=== PATIENT | female | born 1980 | race Caucasian/White ===

== ENCOUNTER 2019-07-30 20:25 | Emergency (ER) | payer BC, OTHER ==
[2019-07-30 20:29] VITALS: RESP 18; TEMP 97.7
[2019-07-30] MEDS ORDERED: SODIUM CHLORIDE 0.9% 500 ML 500 ML IV STA (20:52)
[2019-07-30] MEDS ORDERED: ENALAPRILAT 1.25 MG/ML 1 ML VIAL IVP STA (20:53)
[2019-07-30 21:15] VITALS: PULSE 70
[2019-07-30] MEDS ORDERED: MORPHINE SULFATE 4 MG/ML SYRINGE IVP STA (21:16)
[2019-07-30] MEDS ORDERED: diphenhydrAMINE 50 MG/ML 1 ML VIAL IVP STA (21:16)
[2019-07-30] MEDS ORDERED: METOCLOPRAMIDE 5 MG/ML 2 ML VIAL IVP STA (21:16)
[2019-07-30 21:17] LABS: Basophils # (A) 0.1 k/uL (0-0.2); Basophils % (A) 1 %; Eosinophils # (A) 0.6 k/uL (0-0.7); Eosinophils % (A) 6 %; HCT 42.3 % (34.0-46.0); HGB 14.9 gm/dL (11.4-16.0); Lymphocytes # (A) 2.8 k/uL (1.0-4.8); Lymphocytes % (A) 29 %; MCH 34.3 pg (25.0-35.0); MCHC 35.2 g/dL (31.0-37.0); MCV 97.5 fL (80.0-100.0); Mean Platelet Volume 6.1; Monocytes # (A) 0.4 k/uL (0-1.0); Monocytes % (A) 4 %; Neutrophils # (A) 5.7 k/uL (1.3-7.7); Neutrophils % (A) 58 %; Platelet Count 290 k/uL (150-450); RBC 4.34 m/uL (3.80-5.40); WBC 9.7 k/uL (3.8-10.6)
[2019-07-30 21:21] LABS: Partial Thromboplastin Time 26.3 sec (22.0-30.0); Prothrombin Time 10.4 sec (9.0-12.0)
--- NOTE | 2019-07-30 21:22 | CT ---
EXAMINATION TYPE: CT brain wo con DATE OF EXAM: 07/30/2019 COMPARISON: None HISTORY: headache, htn CT DLP: 1121.4 mGycm. Automated Exposure Control for Dose Reduction was Utilized. TECHNIQUE: CT scan of the head is performed without contrast. FINDINGS: Ventricles have normal size. There is no mass effect nor midline shift. There is no sign of intracranial hemorrhage. Calvarium is intact. There is no evidence of cerebral edema. IMPRESSION: Normal head CT scan.
[2019-07-30 21:23] LABS: ALT 26 U/L (9-52); AST 28 U/L (14-36); African American GFR (CKD) >90 (>60 ml/min/1.73 sqM); Albumin 4.3 g/dL (3.5-5.0); Alkaline Phosphatase 72 U/L (38-126); Anion Gap 4 mmol/L; Blood Urea Nitrogen 10 mg/dL (7-17); Calcium 9.6 mg/dL (8.4-10.2); Carbon Dioxide 28 mmol/L (22-30); Chloride 106 mmol/L (98-107); Glucose 102 mg/dL (74-99); Non-African American GFR(CKD) >90 (>60 ml/min/1.73 sqM); Potassium 4.3 mmol/L (3.5-5.1); Sodium 138 mmol/L (137-145); Total Bilirubin 0.4 mg/dL (0.2-1.3); Total Protein 7.3 g/dL (6.3-8.2)
--- NOTE | 2019-07-30 21:24 | XR ---
EXAMINATION TYPE: XR chest 2V DATE OF EXAM: 07/30/2019 COMPARISON: 11/13/2012 HISTORY: Chest pain TECHNIQUE: Frontal and lateral views of the chest are obtained. FINDINGS: Heart and mediastinum are normal. Lungs are clear. Costophrenic angles are clear. Bony tho rax is intact. IMPRESSION: Normal chest. There is clearing of the minimal pulmonary infiltrates compared to last ex am.
--- NOTE | 2019-07-30 22:03 | ED ---
General Adult HPI - General Chief complaint: Recheck/Abnormal Lab/Rx Stated complaint: Hypertensive Time Seen by Provider: 07/30/19 20:31 Source: patient Mode of arrival: wheelchair Limitations: no limitations - History of Present Illness Initial comments: 39-year-old female without any significant past medical history presents to the emergency dept for a chief complaint of headache 4 days. Patient states that this came on gradually. States headache has been on and off for the past 4 days. States it is across her forehead. States because of this headache she checked her blood pressure at home it was 178 systolic. Patient states that she took her mother's blood pressure medication which was 25 mg of metoprolol. States the Reason she checked her blood pressure was because of this headache. Patient has no other complaints at this time including shortness of breath, chest pain, abdominal pain, nausea or vomiting, or visual changes. - Related Data Allergies Allergy/AdvReac Type Severity Reaction Status Date / Time No Known Allergies Allergy Verified 07/30/19 20:29 Review of Systems ROS Statement: Those systems with pertinent positive or pertinent negative responses have been documented in the HPI. ROS Other: All systems not noted in ROS Statement are negative. Past Medical History Past Medical History: No Reported History History of Any Multi-Drug Resistant Organisms: None Reported Past Surgical History: Appendectomy Past Psychological History: No Psychological Hx Reported Smoking Status: Current every day smoker Past Alcohol Use History: Daily Past Drug Use History: Marijuana General Exam Limitations: no limitations General appearance: alert, in no apparent distress, anxious Head exam: Present: atraumatic, normocephalic, normal inspection Eye exam: Present: normal appearance, PERRL, EOMI. Absent: scleral icterus, conjunctival injection, periorbital swelling ENT exam: Present: normal exam, mucous membranes moist Neck exam: Present: normal inspection, full ROM. Absent: tenderness, meningismus, lymphadenopathy Respiratory exam: Present: normal lung sounds bilaterally. Absent: respiratory distress, wheezes, rales, rhonchi, stridor Cardiovascular Exam: Present: regular rate, normal rhythm, normal heart sounds. Absent: systolic murmur, diastolic murmur, rubs, gallop, clicks GI/Abdominal exam: Present: soft, normal bowel sounds. Absent: distended, tenderness, guarding, rebound, rigid Neurological exam: Present: alert, oriented X3, normal gait, other (GCS 15) Course Vital Signs 07/30/19 07/30/19 07/30/19 20:26 20:56 21:13 Temperature 97.7 F Pulse Rate 78 70 Pulse Rate [ 77 Pulse Oximetery ] Respiratory 18 18 Rate Blood Pressure 205/97 164/94 O2 Sat by Pulse 99 96 Oximetry EKG Findings - EKG Comments: EKG Findings:: Normal sinus rhythm, ventricular rate 68, CO interval 122, QTc 45 9, no evidence of ST elevation or depression, reviewed by Dr Delaney Medical Decision Making - Medical Decision Making patient initially had a blood pressure of 205/97. Patient was very anxious and tearful. Blood pressure did actually decreased without any antihypertensives to 118/72. However patient was noted to have taken 25 mg of metoprolol. This was her mother's prescription. Lab work was obtained and was all unremarkable. CT brain showed a negative scan. Chest x-ray was also unremarkable. There was clearing of pulmonary infiltrates noted. On reevaluation patient's pain has decreased from 6 to a 1. Patient is feeling much better. As headache as a cause for had this may be tension related. I recommended patient keep a log of her blood pressure and follow up with her primary care provider. I recommended checking blood pressure once per day. If she has any worsening symptoms or headache is recurrent she can return to the emergency department which was discussed with her. Patient wishes to follow-up with Dr. Bragg. - Lab Data Result diagrams: 07/30/19 21:00 07/30/19 21:00 Lab Results 07/30/19 07/30/19 07/30/19 Range/Units 21:00 21:00 21:00 WBC 9.7 (3.8-10.6) k/uL RBC 4.34 (3.80-5.40) m/uL Hgb 14.9 (11.4-16.0) gm/dL Hct 42.3 (34.0-46.0) % MCV 97.5 (80.0-100.0) fL MCH 34.3 (25.0-35.0) pg MCHC 35.2 (31.0-37.0) g/dL RDW 12.0 (11.5-15.5) % Plt Count 290 (150-450) k/uL Neutrophils % 58 % Lymphocytes % 29 % Monocytes % 4 % Eosinophils % 6 % Basophils % 1 % Neutrophils # 5.7 (1.3-7.7) k/uL Lymphocytes # 2.8 (1.0-4.8) k/uL Monocytes # 0.4 (0-1.0) k/uL Eosinophils # 0.6 (0-0.7) k/uL Basophils # 0.1 (0-0.2) k/uL PT 10.4 (9.0-12.0) sec INR 1.0 (<1.2) APTT 26.3 (22.0-30.0) sec Sodium 138 (137-145) mmol/L Potassium 4.3 (3.5-5.1) mmol/L Chloride 106 (98-107) mmol/L Carbon Dioxide 28 (22-30) mmol/L Anion Gap 4 mmol/L BUN 10 (7-17) mg/dL Creatinine 0.62 (0.52-1.04) mg/dL Est GFR (CKD-EPI)AfAm >90 (>60 ml/min/1.73 sqM) Est GFR (CKD-EPI)NonAf >90 (>60 ml/min/1.73 sqM) Glucose 102 H (74-99) mg/dL Calcium 9.6 (8.4-10.2) mg/dL Magnesium 2.0 (1.6-2.3) mg/dL Total Bilirubin 0.4 (0.2-1.3) mg/dL AST 28 (14-36) U/L ALT 26 (9-52) U/L Alkaline Phosphatase 72 (38-126) U/L Troponin I (0.000-0.034) ng/mL Total Protein 7.3 (6.3-8.2) g/dL Albumin 4.3 (3.5-5.0) g/dL 07/30/19 Range/Units 21:00 WBC (3.8-10.6) k/uL RBC (3.80-5.40) m/uL Hgb (11.4-16.0) gm/dL Hct (34.0-46.0) % MCV (80.0-100.0) fL MCH (25.0-35.0) pg MCHC (31.0-37.0) g/dL RDW (11.5-15.5) % Plt Count (150-450) k/uL Neutrophils % % Lymphocytes % % Monocytes % % Eosinophils % % Basophils % % Neutrophils # (1.3-7.7) k/uL Lymphocytes # (1.0-4.8) k/uL Monocytes # (0-1.0) k/uL Eosinophils # (0-0.7) k/uL Basophils # (0-0.2) k/uL PT (9.0-12.0) sec INR (<1.2) APTT (22.0-30.0) sec Sodium (137-145) mmol/L Potassium (3.5-5.1) mmol/L Chloride (98-107) mmol/L Carbon Dioxide (22-30) mmol/L Anion Gap mmol/L BUN (7-17) mg/dL Creatinine (0.52-1.04) mg/dL Est GFR (CKD-EPI)AfAm (>60 ml/min/1.73 sqM) Est GFR (CKD-EPI)NonAf (>60 ml/min/1.73 sqM) Glucose (74-99) mg/dL Calcium (8.4-10.2) mg/dL Magnesium (1.6-2.3) mg/dL Total Bilirubin (0.2-1.3) mg/dL AST (14-36) U/L ALT (9-52) U/L Alkaline Phosphatase (38-126) U/L Troponin I <0.012 (0.000-0.034) ng/mL Total Protein (6.3-8.2) g/dL Albumin (3.5-5.0) g/dL Disposition Clinical Impression: Headache, Hypertension Disposition: HOME SELF-CARE Condition: Good Instructions (If sedation given, give patient instructions): Hypertension (ED), Acute Headache (ED) Additional Instructions: Please follow up with primary care in 1-2 days. Remember to keep a blood pressure log by checking her blood pressure at the same time once daily and recording this. If you have worsening symptoms or worsening headache return to the emergency department. Is patient prescribed a controlled substance at d/c from ED?: No Referrals: Dom Bragg MD [STAFF PHYSICIAN] - 1-2 days Time of Disposition: 22:18
[2019-07-30 22:20] VITALS: BP 118/74
[2019-07-30 22:32] LABS: Appearance,Urine Clear (Clear); Bilirubin,Urine Negative (Negative); Blood,Urine Negative (Negative); Color,Urine Yellow; Glucose,Urine (UA) Negative (Negative); Ketones,Urine Negative (Negative); Leukocyte Esterase,Urine Negative (Negative); Nitrite,Urine Negative (Negative); Protein,Urine Negative (Negative); Specific Gravity,Urine 1.009 (1.001-1.035); Urobilinogen,Urine <2.0 mg/dL (<2.0)
== END 2019-07-30 22:41 | disposition home or self-care (01) ==
LOC: EC 20:25
DX: I10 Essential (primary) hypertension (principal); R51 Headache; R91.8 Other nonspecific abnormal finding of lung field; R45.83 Excessive crying of child, adolescent or adult; F17.200 Nicotine dependence, unspecified, uncomplicated; Z53.8 Procedure and treatment not carried out for other reasons
CPT/HCPCS: 36415; 93005; 80053; 83735; 84484; 85025; 85610; 85730; 81003; 71046; 70450; 99284; 96374; 96375 ×2; 96361; J2270; J1200; J2765

== ENCOUNTER 2019-10-15 12:13 | Observation (INO) | payer BC ==
[2019-10-15] MEDS ORDERED: IPRATROPIUM-ALBUTEROL 3 ML NEB INHALATION STA ×2 (12:21→15:32)
[2019-10-15] MEDS ORDERED: SODIUM CHLORIDE 0.9% 500 ML 500 ML IV STA (13:03)
[2019-10-15] MEDS ORDERED: KETOROLAC 30 MG/ML 1 ML VIAL IVP STA (13:03)
[2019-10-15] MEDS ORDERED: methylPREDNISolone SOD SUCCI 125 MG/2 ML VIAL IV STA (13:03)
--- NOTE | 2019-10-15 13:03 | ED ---
SOB HPI - General Chief Complaint: Shortness of Breath Stated Complaint: Low back pain Time Seen by Provider: 10/15/19 12:20 Source: patient Mode of arrival: wheelchair Limitations: no limitations - History of Present Illness Initial Comments: Patient is a 39-year-old female presenting to emergency Department with complaints of shortness of breath and fever for the last 2 days. Patient states she has a history of chronic bronchitis and when she does get sick with upper respiratory type symptoms usually hits her very hard. Patient states she's also been taking Motrin for her fever. She has not had any medication today. She is also complaining of right sided flank pain that has been intermittent for a few years now. Patient states it is hurting her a lot today. Patient denies history of kidney stones. Patient states she has been having this pain on and off since she had her appendix out. She admits to being an every day smoker as well as marijuana smoker. She denies history of PEs, no calf pain, no recent travel. Patient is not on control. Arrival to the ER, patient is febrile 100.2, pulse is 104, respiratory 30, 91% on room air. - Related Data Home Medications Medication Instructions Recorded Confirmed Cinnamon Bark [Cinnamon] 500 mg PO DAILY 10/15/19 10/15/19 Ibuprofen [Motrin Ib] 400 mg PO Q6H PRN 10/15/19 10/15/19 Lisinopril [Zestril] 5 mg PO DAILY 10/15/19 10/15/19 Red Yeast Rice 600 mg PO DAILY 10/15/19 10/15/19 guaiFENesin [Mucinex] 600 mg PO Q12H PRN 10/15/19 10/15/19 Allergies Allergy/AdvReac Type Severity Reaction Status Date / Time No Known Allergies Allergy Verified 10/15/19 17:29 Review of Systems ROS Statement: Those systems with pertinent positive or pertinent negative responses have been documented in the HPI. ROS Other: All systems not noted in ROS Statement are negative. Past Medical History Past Medical History: No Reported History Additional Past Medical History / Comment(s): bronchitis, chronic back pain History of Any Multi-Drug Resistant Organisms: None Reported Past Surgical History: Appendectomy Past Psychological History: No Psychological Hx Reported Smoking Status: Current every day smoker Past Alcohol Use History: Daily Past Drug Use History: Marijuana - Past Family History Mother Additional Family Medical History / Comment(s): Passed at 31 from sepsis after Father Additional Family Medical History / Comment(s): Hypotension General Exam - General Exam Comments Initial Comments: GENERAL: Patient sitting on side of bed, taking rapid shallow breaths. Patient is talking, conversating. HEAD: Atraumatic, normocephalic. EYES: Pupils equal round and reactive to light, extraocular movements intact, sclera anicteric, conjunctiva are normal. ENT: TMs normal, nares patent, oropharynx clear without exudates. Moist mucous me mbranes. NECK: Normal range of motion, supple without lymphadenopathy or JVD. LUNGS: Scattered wheezes throughout, more pronounced in the left side. Rapid breathing. HEART: Tachycardia rate and rhythm without murmurs, rubs or gallops. ABDOMEN: Soft, nontender, normoactive bowel sounds. No guarding, no rebound. No masses appreciated. Right flank pain. : Deferred EXTREMITIES: Normal range of motion, no pitting or edema. No clubbing or cyanosis. NEUROLOGICAL: Normal speech, normal gait. PSYCH: Normal mood, normal affect. SKIN: Warm, Dry, normal turgor, no rashes or lesions noted. Limitations: no limitations Course Vital Signs 10/15/19 10/15/19 10/15/19 12:14 12:36 12:45 Temperature 100.2 F H Pulse Rate 104 H 92 92 Respiratory 30 H Rate Blood Pressure 155/87 O2 Sat by Pulse 91 L Oximetry 10/15/19 10/15/19 10/15/19 12:53 14:00 14:45 Temperature 99.1 F 97.8 F Pulse Rate 115 H 92 Respiratory 28 H 24 Rate Blood Pressure 148/92 139/82 146/90 O2 Sat by Pulse 95 96 95 Oximetry 10/15/19 10/15/19 10/15/19 15:31 16:23 16:32 Temperature Pulse Rate 88 83 86 Respiratory 24 Rate Blood Pressure 132/85 O2 Sat by Pulse 90 L Oximetry 10/15/19 17:20 Temperature Pulse Rate 92 Respiratory 20 Rate Blood Pressure 130/78 O2 Sat by Pulse 94 L Oximetry Medical Decision Making - Medical Decision Making She is a 39-year-old female presenting with shortness of breath, fever for 2 days. Patient has history of chronic bronchitis. She has an every day to gram her on a smoker. She has no history of PEs, no PE risk factors. Patient is febrile and tachycardia on arrival, shortness of breath. Lab work shows no acute abnormalities. Patient is influenza positive. Chest x-ray shows chronic parenchymal changes with perihilar edema and infiltrates present. Patient was given fluids, steroids and to do her nebs. She continues to have low oxygen saturation dropping to 90-89% on room air. She is stable at 95% on 2 L. She does not usually require oxygen at home. Renal ultrasound was obtained due to significant right flank pain. Shows no acute abnormalities. Patient will be admitted for influenza, pneumonia, and low oxygen saturation. She is in agreement with this complaint of care. We will continue with DuoNeb times as needed as well as antibiotics for pneumonia. Case is discussed with Dr. Vang who agrees this plan of care. Dr. Rodas is accepting. - Lab Data Result diagrams: 10/15/19 12:46 10/15/19 12:46 Lab Results 10/15/19 10/15/19 10/15/19 Range/Units 12:46 12:46 12:46 WBC 10.6 (3.8-10.6) k/uL RBC 4.87 (3.80-5.40) m/uL Hgb 16.0 (11.4-16.0) gm/dL Hct 46.9 H (34.0-46.0) % MCV 96.3 (80.0-100.0) fL MCH 32.8 (25.0-35.0) pg MCHC 34.1 (31.0-37.0) g/dL RDW 11.9 (11.5-15.5) % Plt Count 241 (150-450) k/uL Neutrophils % 90 % Lymphocytes % 3 % Monocytes % 3 % Eosinophils % 1 % Basophils % 3 % Neutrophils # 9.5 H (1.3-7.7) k/uL Lymphocytes # 0.3 L (1.0-4.8) k/uL Monocytes # 0.3 (0-1.0) k/uL Eosinophils # 0.1 (0-0.7) k/uL Basophils # 0.3 H (0-0.2) k/uL Sodium (137-145) mmol/L Potassium (3.5-5.1) mmol/L Chloride (98-107) mmol/L Carbon Dioxide (22-30) mmol/L Anion Gap mmol/L BUN (7-17) mg/dL Creatinine (0.52-1.04) mg/dL Est GFR (CKD-EPI)AfAm (>60 ml/min/1.73 sqM) Est GFR (CKD-EPI)NonAf (>60 ml/min/1.73 sqM) Glucose (74-99) mg/dL Calcium (8.4-10.2) mg/dL Total Bilirubin (0.2-1.3) mg/dL AST (14-36) U/L ALT (4-34) U/L Alkaline Phosphatase (38-126) U/L Total Protein (6.3-8.2) g/dL Albumin (3.5-5.0) g/dL Urine Color Yellow Urine Appearance Cloudy H (Clear) Urine pH 6.0 (5.0-8.0) Ur Specific [place] 1.024 (1.001-1.035) Urine Protein 2+ H (Negative) Urine Glucose (UA) Negative (Negative) Urine Ketones 1+ H (Negative) Urine Blood Moderate H (Negative) Urine Nitrite Negative (Negative) Urine Bilirubin Negative (Negative) Urine Urobilinogen <2.0 (<2.0) mg/dL Ur Leukocyte Esterase Negative (Negative) Urine RBC 11 H (0-5) /hpf Urine WBC 6 H (0-5) /hpf Ur Squamous Epith Cells 6 H (0-4) /hpf Amorphous Sediment Few H (None) /hpf Urine Mucus Few H (None) /hpf Urine HCG, Qual Not Detected (Not Detectd) Influenza Type A RNA (Not Detectd) Influenza Type B (PCR) (Not Detectd) 10/15/19 10/15/19 Range/Units 12:46 12:46 WBC (3.8-10.6) k/uL RBC (3.80-5.40) m/uL Hgb (11.4-16.0) gm/dL Hct (34.0-46.0) % MCV (80.0-100.0) fL MCH (25.0-35.0) pg MCHC (31.0-37.0) g/dL RDW (11.5-15.5) % Plt Count (150-450) k/uL Neutrophils % % Lymphocytes % % Monocytes % % Eosinophils % % Basophils % % Neutrophils # (1.3-7.7) k/uL Lymphocytes # (1.0-4.8) k/uL Monocytes # (0-1.0) k/uL Eosinophils # (0-0.7) k/uL Basophils # (0-0.2) k/uL Sodium 135 L (137-145) mmol/L Potassium 3.8 (3.5-5.1) mmol/L Chloride 100 (98-107) mmol/L Carbon Dioxide 23 (22-30) mmol/L Anion Gap 12 mmol/L BUN 5 L (7-17) mg/dL Creatinine 0.49 L (0.52-1.04) mg/dL Est GFR (CKD-EPI)AfAm >90 (>60 ml/min/1.73 sqM) Est GFR (CKD-EPI)NonAf >90 (>60 ml/min/1.73 sqM) Glucose 124 H (74-99) mg/dL Calcium 9.6 (8.4-10.2) mg/dL Total Bilirubin 0.4 (0.2-1.3) mg/dL AST 28 (14-36) U/L ALT 16 (4-34) U/L Alkaline Phosphatase 75 (38-126) U/L Total Protein 7.8 (6.3-8.2) g/dL Albumin 4.6 (3.5-5.0) g/dL Urine Color Urine Appearance (Clear) Urine pH (5.0-8.0) Ur Specific [place] (1.001-1.035) Urine Protein (Negative) Urine Glucose (UA) (Negative) Urine Ketones (Negative) Urine Blood (Negative) Urine Nitrite (Negative) Urine Bilirubin (Negative) Urine Urobilinogen (<2.0) mg/dL Ur Leukocyte Esterase (Negative) Urine RBC (0-5) /hpf Urine WBC (0-5) /hpf Ur Squamous Epith Cells (0-4) /hpf Amorphous Sediment (None) /hpf Urine Mucus (None) /hpf Urine HCG, Qual (Not Detectd) Influenza Type A RNA Detected H (Not Detectd) Influenza Type B (PCR) Not Detected (Not Detectd) Disposition Clinical Impression: Influenza, Pneumonia, Low oxygen saturation Disposition: ADMITTED IP TO THIS HOSP Condition: Stable Is patient prescribed a controlled substance at d/c from ED?: No Decision Date: 10/15/19 Decision Time: 16:50
[2019-10-15 13:05] LABS: Basophils # (A) 0.3 k/uL (0-0.2); Basophils % (A) 3 %; Eosinophils # (A) 0.1 k/uL (0-0.7); Eosinophils % (A) 1 %; HCT 46.9 % (34.0-46.0); Lymphocytes # (A) 0.3 k/uL (1.0-4.8); Lymphocytes % (A) 3 %; MCH 32.8 pg (25.0-35.0); MCHC 34.1 g/dL (31.0-37.0); MCV 96.3 fL (80.0-100.0); Mean Platelet Volume 7.6; Monocytes # (A) 0.3 k/uL (0-1.0); Monocytes % (A) 3 %; Neutrophils # (A) 9.5 k/uL (1.3-7.7); Neutrophils % (A) 90 %; Platelet Count 241 k/uL (150-450); RBC 4.87 m/uL (3.80-5.40); RDW 11.9 % (11.5-15.5); WBC 10.6 k/uL (3.8-10.6)
[2019-10-15 13:11] LABS: Amorphous Sediment,Urine Few /hpf; Appearance,Urine Cloudy (Clear); Bilirubin,Urine Negative (Negative); Blood,Urine Moderate (Negative); Color,Urine Yellow; Glucose,Urine (UA) Negative (Negative); Ketones,Urine 1+ (Negative); Leukocyte Esterase,Urine Negative (Negative); Mucus,Urine Few /hpf; Nitrite,Urine Negative (Negative); Protein,Urine 2+ (Negative); RBC,Urine 11 /hpf (0-5); Specific Gravity,Urine 1.024 (1.001-1.035); Squamous Epithelial Cell,Urine 6 /hpf (0-4); Urobilinogen,Urine <2.0 mg/dL (<2.0); WBC,Urine 6 /hpf (0-5)
--- NOTE | 2019-10-15 13:13 | XR ---
EXAMINATION TYPE: XR chest 2V DATE OF EXAM: 10/15/2019 COMPARISON: Chest x-ray July 30, 2019 HISTORY: Shortness of breath and fever. TECHNIQUE: Frontal and lateral views of the chest are obtained. FINDINGS: There is chronic parenchymal change with some increased central opacities bilaterally. No pleural effusion or pneumothorax seen bilaterally. The cardiac silhouette size is within normal limit s. The osseous structures are intact. IMPRESSION: Chronic parenchymal changes with perihilar edema and/or infiltrates felt present.
[2019-10-15 13:19] LABS: ALT 16 U/L (4-34); AST 28 U/L (14-36); African American GFR (CKD) >90 (>60 ml/min/1.73 sqM); Albumin 4.6 g/dL (3.5-5.0); Alkaline Phosphatase 75 U/L (38-126); Anion Gap 12 mmol/L; Blood Urea Nitrogen 5 mg/dL (7-17); Calcium 9.6 mg/dL (8.4-10.2); Carbon Dioxide 23 mmol/L (22-30); Chloride 100 mmol/L (98-107); Glucose 124 mg/dL (74-99); Non-African American GFR(CKD) >90 (>60 ml/min/1.73 sqM); Potassium 3.8 mmol/L (3.5-5.1); Sodium 135 mmol/L (137-145); Total Bilirubin 0.4 mg/dL (0.2-1.3); Total Protein 7.8 g/dL (6.3-8.2)
--- NOTE | 2019-10-15 14:33 | US ---
EXAMINATION TYPE: US renals and bladder DATE OF EXAM: 10/15/2019 COMPARISON: NONE CLINICAL HISTORY: right flank pain, hematuria. Influenza A, right flank pain, hematuria EXAM MEASUREMENTS: Right Kidney: 11.2 x 5.1 x 5.3 cm Left Kidney: 11.6 x 5.1 x 5.4 cm Right Kidney: Scanned left lateral decubitus position, no hydronephrosis or masses seen Left Kidney: Scanned right lateral decubitus position, no hydronephrosis or masses seen Bladder: not distended There is no evidence for hydronephrosis at this point in time. No nephrolithiasis is seen. No cisco s are identified. The urinary bladder is anechoic. Bilateral ureteral jets are seen. Cortical medullary differentiation is maintained within the kidneys. IMPRESSION: Nondistended bladder. Some limitations technically. No evident hydronephrosis or renal mass.
[2019-10-15] MEDS ORDERED: PNEUMONIA PROTOCOL UTILIZED 1 EACH MISC PO PRN (16:41)
[2019-10-15] MEDS: SODIUM CHLORIDE 0.9% 1,000 ML IV SCH (17:16)
[2019-10-15] MEDS: IPRATROPIUM-ALBUTEROL 3 ML NEB INHALATION PRN (19:30)
[2019-10-15] MEDS ORDERED: IBUPROFEN 200 MG TAB PO PRN (20:08)
[2019-10-15] MEDS ORDERED: LORazepam 2 MG/ML INJ IV PRN ×3 (20:11)
[2019-10-16] MEDS: IPRATROPIUM-ALBUTEROL 3 ML NEB INHALATION PRN ×6 (01:07→20:08)
[2019-10-16] MEDS: SODIUM CHLORIDE 0.9% 1,000 ML IV SCH ×3 (04:21→19:44)
[2019-10-16] MEDS ORDERED: IBUPROFEN 400 MG TAB PO PRN (08:39)
[2019-10-16] MEDS: LISINOPRIL 5 MG TAB PO SCH (08:39)
[2019-10-16] MEDS: guaiFENesin 600 MG TABLET.ER PO PRN ×2 (09:14→21:04)
[2019-10-16] MEDS: OSELTAMIVIR 75 MG CAP PO SCH ×2 (13:09→21:04)
--- NOTE | 2019-10-16 14:30 | P.CNPUL ---
History of Present Illness Consult date: 10/16/19 Requesting physician: Edgard Rodas Reason for consult: pneumonia Chief complaint: Shortness of breath and fever History of present illness: This is a 39-year-old female presented to the ER with 2 days history of fever, shortness of breath, cough, generalized aches and pains, feeling congested, patient felt that she was coming down with the flu. Indeed when she presented to the ER, her influenza screening was positive for influenza A. Her chest x- ray question perihilar infiltrates. Patient was admitted, started on antibiotics, and I started Tamiflu today. She was also placed on bronch odilators, and I was asked to see her on consultation. Continues to cough, no wheezing, she has a low-grade temp, and her O2 saturation is 91% on room air. However it was 97% on 2 L nasal cannula. Patient denies any history of COPD, however she is a [id number] smoker, continues to smoke, and has been tried on albuterol updrafts in the past and they seem to help his symptoms. Review of Systems Constitutional: Fever and chills, weakness, generalized aches, no weight loss. HEENT: Sore throat, nasal congestion, no ear ache, no blurred vision. Pulmonary: As noted in HPI. Cardiac: Denies any chest pain or orthopnea palpitations no PND. GI: No nausea no vomiting no abdominal pain but she does have some right flank discomfort. Genitourinary: Denies any dysuria frequency urgency or hematuria. Skin: Denies any rashes. Neurologic: Denies any headache blurred vision dizziness. Psychiatric: Denies any symptoms of active depression. Hematologic: Denies any clotting bleeding or bruising Musculoskeletal: Generalized aches and pains. Past Medical History Past Medical History: No Reported History Additional Past Medical History / Comment(s): bronchitis, chronic back pain History of Any Multi-Drug Resistant Organisms: None Reported Past Surgical History: Appendectomy Additional Past Surgical History / Comment(s): Tubal ligation, plastic surgery for david Past Psychological History: No Psychological Hx Reported Smoking Status: Current every day smoker Past Alcohol Use History: Daily Past Drug Use History: Marijuana - Past Family History Mother Additional Family Medical History / Comment(s): Passed at 31 from sepsis after Father Additional Family Medical History / Comment(s): Hypotension Medications and Allergies Home Medications Medication Instructions Recorded Confirmed Type Cinnamon Bark [Cinnamon] 500 mg PO DAILY 10/15/19 10/15/19 History Ibuprofen [Motrin Ib] 400 mg PO Q6H PRN 10/15/19 10/15/19 History Lisinopril [Zestril] 5 mg PO DAILY 10/15/19 10/15/19 History Red Yeast Rice 600 mg PO DAILY 10/15/19 10/15/19 History guaiFENesin [Mucinex] 600 mg PO Q12H PRN 10/15/19 10/15/19 History Allergies Allergy/AdvReac Type Severity Reaction Status Date / Time No Known Allergies Allergy Verified 10/15/19 17:29 Physical Exam Vitals: Vital Signs Temp Pulse Pulse Pulse Resp BP BP 10/16/19 13:48 76 10/16/19 13:36 72 10/16/19 13:00 98.3 F 68 16 119/67 10/16/19 09:41 80 10/16/19 09:30 80 10/16/19 05:00 98.1 F 87 18 126/78 10/16/19 04:29 81 18 10/16/19 04:20 76 18 10/16/19 01:16 78 18 10/16/19 01:07 75 18 10/15/19 19:56 98.0 F 79 20 122/70 10/15/19 19:40 99 10/15/19 19:33 96 10/15/19 17:20 92 20 130/78 10/15/19 16:32 86 10/15/19 16:23 83 10/15/19 15:31 88 24 132/85 10/15/19 14:45 97.8 F 92 24 146/90 Pulse Ox 10/16/19 13:48 10/16/19 13:36 10/16/19 13:00 97 10/16/19 09:41 10/16/19 09:30 10/16/19 05:00 97 10/16/19 04:29 10/16/19 04:20 10/16/19 01:16 10/16/19 01:07 10/15/19 19:56 96 10/15/19 19:40 10/15/19 19:33 10/15/19 17:20 94 L 10/15/19 16:32 02/04/20 16:23 10/15/19 15:31 90 L 10/15/19 14:45 95 Intake and Output 10/15/19 10/16/19 10/16/19 22:59 06:59 14:59 Intake Total 900 1200 200 Balance 900 1200 200 Intake: Intake, IV Titration 300 600 Amount Sodium Chloride 0.9% 1, 300 600 000 ml @ 75 mls/hr IV . [id number] [facility] Rx#:[id number] Oral 600 600 200 Other: Voiding Method Toilet Toilet # Voids 2 3 Weight 54.814 kg Physical Exam: Revealed 39-year-old female in no distress. Head: Atraumatic, normocephalic. HEENT:[Neck is supple.] [No neck masses.] [No thyromegaly.] [No JVD.] Chest: [Clear throughout, minimal fine crackles at the bases no rhonchi and no wheezes.] Symmetrical chest expansion. Cardiac Exam: [Normal S1 and S2, no S3 gallop, no murmur.] Abdomen: [Soft, nontender, no megaly, no rebound, no guarding, normal bowel sounds.] Extremities: [No clubbing, no edema, no cyanosis.] Neurological Exam: [No focal neurologic deficit.] Alert and oriented 3. Skin: No rashes. Psychiatric: Normal mood, affect and normal mental status examination. Results - Laboratory Findings CBC and BMP: 10/15/19 12:46 10/15/19 12:46 Abnormal lab findings: Abnormal Labs 10/15/19 10/15/19 10/15/19 12:46 12:46 12:46 Hct 46.9 H Neutrophils # 9.5 H Lymphocytes # 0.3 L Basophils # 0.3 H Sodium 135 L BUN 5 L Creatinine 0.49 L Glucose 124 H Urine Appearance Cloudy H Urine Protein 2+ H Urine Ketones 1+ H Urine Blood Moderate H Urine RBC 11 H Urine WBC 6 H Ur Squamous Epith Cells 6 H Amorphous Sediment Few H Urine Mucus Few H Influenza Type A RNA 10/15/19 12:46 Hct Neutrophils # Lymphocytes # Basophils # Sodium BUN Creatinine Glucose Urine Appearance Urine Protein Urine Ketones Urine Blood Urine RBC Urine WBC Ur Squamous Epith Cells Amorphous Sediment Urine Mucus Influenza Type A RNA Detected H - Diagnostic Findings Chest x-ray: image reviewed (As noted in HPI, suspicious for perihilar infiltrates.) Assessment and Plan Assessment: Impression: Acute influenza a infection Acute community-acquired pneumonia Acute exacerbation of COPD Tobacco dependence syndrome Right flank pain, with negative renal ultrasound. Recommendation: Continue antibiotics. Bronchodilators. Steroids. Tamiflu was added. We'll continue to follow. Repeat chest x-ray in the next 24 hours. Time with Patient: Greater than 30
[2019-10-16] MEDS: methylPREDNISolone SOD SUCCI 40 MG/ML 1 ML VIAL IV SCH (15:22)
[2019-10-16] MEDS: AZITHROMYCIN 500 MG TAB PO SCH (15:22)
--- NOTE | 2019-10-16 23:59 | P.HPIM ---
History of Present Illness H&P Date: 10/16/19 Chief Complaint: Short of breath History of presenting complaint: This is a 39-year-old patient of Dr. Kaufman. Long-standing smoker. For 3 days patient started of with having fever chills achiness all over. Shortness of breath and wheezing cough. Presented for the same. Not getting better. In the ER patient tested positive for influenza type A. Started on Tamiflu admitted for the same. Also started on bronchodilators. Having muscle aches Review of systems: GEN.: Fever or chills EYES: None HEENT: None NECK: None RESPIRATORY: As above] CARDIOVASCULAR: None GASTROINTESTINAL: None GENITOURINARY: None MUSCULOSKELETAL: Muscle achiness LYMPHATICS: None HEMATOLOGICAL: None PSYCHIATRY: Slightly anxious NEUROLOGICAL: None Past medical history to include: Bronchitis, chronic back pain Social history: Smokes a pack a day for close to 24 years, drinks 4-512 ounces beer a day, distal joints of marijuana daily. Works in [employer] at [facility] [facility]. Family history: Reviewed, noncontributory to presentation Physical examination: VITAL SIGNS: [100.2, 104, 20, 155/87, 91% on room air GENERAL: BMI 20.7, sitting up, tired appearing. EYES: Pupils equal. Conjunctiva normal. HEENT: External appearance of nose and ears normal, oral cavity grossly normal. NECK: JVD not raised; masses not palpable. HEART: First and second heart sounds are normal; no edema. LUNGS: Respiratory rate increased, diminished breath sounds prolonged expiration some wheezing. ABDOMEN: Soft, nontender, liver spleen not palpable, no masses palpable. PSYCH: Alert and oriented x3; mood and affect anxiousl. NEUROLOGICAL: Cranial nerves grossly intact; no facial asymmetry, power and sensation grossly intact. LYMPHATICS: No lymph nodes palpable in the axilla and neck INVESTIGATIONS, reviewed in the clinical context: White count 10.6 hemoglobin 16 potassium 3.815 creatinine 0.49 Influenza type A RNA positive Chest x-ray film-personally reviewed by me shows questionable infiltrate. Assessment: -Acute influenza A pneumonitis -Possible old likes secondary bacterial pneumonia, POA -Sepsis due to above pneumonia -Acute COPD exacerbation in a current smoker -Chronic nicotine dependence patient's cigarette smoker -Chronic alcohol use -Recreational marijuana use Plan: Patient started on bronchodilators, IV Solu-Medrol, Tamiflu, IV ceftriaxone. Home medications resumed. IV fluids. Lovenox for DVT prophylaxis. Care was discussed with the patient question were answered. Smoke cessation counseling: This was done with the patient. Nicotine patch is being given. More than 3 minutes was spent for this Past Medical History Past Medical History: No Reported History Additional Past Medical History / Comment(s): bronchitis, chronic back pain History of Any Multi-Drug Resistant Organisms: None Reported Past Surgical History: Appendectomy Additional Past Surgical History / Comment(s): Tubal ligation, plastic surgery f or david Past Psychological History: No Psychological Hx Reported Smoking Status: Current every day smoker Past Alcohol Use History: Daily Past Drug Use History: Marijuana - Past Family History Mother Additional Family Medical History / Comment(s): Passed at 31 from sepsis after Father Additional Family Medical History / Comment(s): Hypotension Medications and Allergies Home Medications Medication Instructions Recorded Confirmed Type Cinnamon Bark [Cinnamon] 500 mg PO DAILY 10/15/19 10/15/19 History Ibuprofen [Motrin Ib] 400 mg PO Q6H PRN 10/15/19 10/15/19 History Lisinopril [Zestril] 5 mg PO DAILY 10/15/19 10/15/19 History Red Yeast Rice 600 mg PO DAILY 10/15/19 10/15/19 History guaiFENesin [Mucinex] 600 mg PO Q12H PRN 10/15/19 10/15/19 History Allergies Allergy/AdvReac Type Severity Reaction Status Date / Time No Known Allergies Allergy Verified 10/15/19 17:29 Physical Exam Vitals: Vital Signs Temp Pulse Pulse Pulse Resp BP BP 10/16/19 09:41 80 10/16/19 09:30 80 10/16/19 05:00 98.1 F 87 18 126/78 10/16/19 04:29 81 18 10/16/19 04:20 76 18 10/16/19 01:16 78 18 10/16/19 01:07 75 18 10/15/19 19:56 98.0 F 79 20 122/70 10/15/19 19:40 99 10/15/19 19:33 96 10/15/19 17:20 92 20 130/78 10/15/19 16:32 86 10/15/19 16:23 83 10/15/19 15:31 88 24 132/85 10/15/19 14:45 97.8 F 92 24 146/90 10/15/19 14:00 139/82 10/15/19 12:53 99.1 F 115 H 28 H 148/92 10/15/19 12:45 92 10/15/19 12:36 92 10/15/19 12:14 100.2 F H 104 H 30 H 155/87 Pulse Ox 10/16/19 09:41 10/16/19 09:30 10/16/19 05:00 97 10/16/19 04:29 10/16/19 04:20 10/16/19 01:16 10/16/19 01:07 10/15/19 19:56 96 10/15/19 19:40 10/15/19 19:33 10/15/19 17:20 94 L 10/15/19 16:32 10/15/19 16:23 10/15/19 15:31 90 L 10/15/19 14:45 95 10/15/19 14:00 96 10/15/19 12:53 95 10/15/19 12:45 10/15/19 12:36 10/15/19 12:14 91 L Intake and Output 10/15/19 10/16/19 10/16/19 22:59 06:59 14:59 Intake Total 900 1200 200 Balance 900 1200 200 Intake: Intake, IV Titration 300 600 Amount Sodium Chloride 0.9% 1, 300 600 000 ml @ 75 mls/hr IV . [id number] [facility] Rx#:[id number] Oral 600 600 200 Other: Voiding Method Toilet Toilet # Voids 2 3 Weight 54.814 kg Results CBC & Chem 7: 10/15/19 12:46 10/15/19 12:46 Labs: Abnormal Lab Results - Last 24 Hours (Table) 10/15/19 10/15/19 10/15/19 Range/Units 12:46 12:46 12:46 Hct 46.9 H (34.0-46.0) % Neutrophils # 9.5 H (1.3-7.7) k/uL Lymphocytes # 0.3 L (1.0-4.8) k/uL Basophils # 0.3 H (0-0.2) k/uL Sodium 135 L (137-145) mmol/L BUN 5 L (7-17) mg/dL Creatinine 0.49 L (0.52-1.04) mg/dL Glucose 124 H (74-99) mg/dL Urine Appearance Cloudy H (Clear) Urine Protein 2+ H (Negative) Urine Ketones 1+ H (Negative) Urine Blood Moderate H (Negative) Urine RBC 11 H (0-5) /hpf Urine WBC 6 H (0-5) /hpf Ur Squamous Epith Cells 6 H (0-4) /hpf Amorphous Sediment Few H (None) /hpf Urine Mucus Few H (None) /hpf Influenza Type A RNA (Not Detectd) 10/15/19 Range/Units 12:46 Hct (34.0-46.0) % Neutrophils # (1.3-7.7) k/uL Lymphocytes # (1.0-4.8) k/uL Basophils # (0-0.2) k/uL Sodium (137-145) mmol/L BUN (7-17) mg/dL Creatinine (0.52-1.04) mg/dL Glucose (74-99) mg/dL Urine Appearance (Clear) Urine Protein (Negative) Urine Ketones (Negative) Urine Blood (Negative) Urine RBC (0-5) /hpf Urine WBC (0-5) /hpf Ur Squamous Epith Cells (0-4) /hpf Amorphous Sediment (None) /hpf Urine Mucus (None) /hpf Influenza Type A RNA Detected H (Not Detectd) Thrombosis Risk Factor Assmnt - Choose All That Apply Each Factor Represents 1 point: Serious lung disease incl. pneumonia (< 1month) Other Risk Factors: No Other congenital or acquired thrombophilia - If yes, enter type in comment: No Thrombosis Risk Factor Assessment Total Risk Factor Score: 1 Thrombosis Risk Factor Assessment Level: Low Risk
[2019-10-17] MEDS: methylPREDNISolone SOD SUCCI 40 MG/ML 1 ML VIAL IV SCH ×2 (00:14→08:45)
[2019-10-17] MEDS: NICOTINE 21MG/24HR PATCH TRANSDERM SCH ×3 (00:15→08:42)
[2019-10-17] MEDS: ENOXAPARIN 40 MG/0.4 ML SYRINGE SQ SCH ×2 (00:15→08:46)
[2019-10-17] MEDS: IPRATROPIUM-ALBUTEROL 3 ML NEB INHALATION PRN ×2 (00:26→04:02)
[2019-10-17] MEDS ORDERED: BUDESONIDE 1 MG/2 ML NEBU INHALATION SCH (08:00)
[2019-10-17] MEDS: SODIUM CHLORIDE 0.9% 1,000 ML IV SCH (08:43)
[2019-10-17] MEDS: OSELTAMIVIR 75 MG CAP PO SCH (08:45)
[2019-10-17] MEDS: AZITHROMYCIN 500 MG TAB PO SCH (08:46)
[2019-10-17] MEDS: LISINOPRIL 5 MG TAB PO SCH (08:46)
[2019-10-17] MEDS: IPRATROPIUM-ALBUTEROL 3 ML NEB INHALATION SCH ×2 (09:05→13:42)
[2019-10-17 12:16] VITALS: BP 120/71; RESP 18; TEMP 98.5
--- NOTE | 2019-10-17 13:02 | P.PN ---
Subjective Progress Note Date: 10/17/19 Principal diagnosis: Acute community-acquired pneumonia and acute influenza infection This is a 39-year-old female presented to the ER with 2 days history of fever, shortness of breath, cough, generalized aches and pains, feeling congested, patient felt that she was coming down with the flu. Indeed when she presented to the ER, her influenza screening was positive for influenza A. Her chest x- ray question perihilar infiltrates. Patient was admitted, started on antibiotics, and I started Tamiflu today. She was also placed on bronchodilators, and I was asked to see her on consultation. Continues to cough, no wheezing, she has a low-grade temp, and her O2 saturation is 91% on room air. However it was 97% on 2 L nasal cannula. Patient denies any history of COPD, however she is a [id number] smoker, continues to smoke, and has been tried on albuterol updrafts in the past and they seem to help his symptoms. Reevaluated today on 10/17/2019, patient is feeling dramatically better, breathing a lot easier, no cough no wheezing no shortness of breath. Patient feels back to her baseline. Objective - Vital Signs Vital signs: Vital Signs Temp 98.5 F 10/17/19 12:15 Pulse 69 10/17/19 12:15 Resp 18 10/17/19 12:15 BP 120/71 10/17/19 12:15 Pulse Ox 95 10/17/19 12:15 Intake & Output 10/16/19 10/17/19 10/17/19 18:59 06:59 18:59 Intake Total 440 1880 Balance 440 1880 Intake: Intake, IV Titration 700 Amount Sodium Chloride 0.9% 1, 600 000 ml @ 75 mls/hr IV . [id number] [facility] Rx#:[id number] cefTRIAXone 1 gm In 100 Sodium Chloride 0.9% 50 ml @ 100 mls/hr IVPB Q12HR [facility] Rx#:[id number] Oral 440 1180 Other: Voiding Method Toilet Toilet Toilet # Voids 1 2 - Exam Physical Exam: Revealed 39-year-old female in no distress. Head: Atraumatic, normocephalic. HEENT:[Neck is supple.] [No neck masses.] [No thyromegaly.] [No JVD.] Chest: [Clear throughout, no crackles or rhonchi or wheezes. Cardiac Exam: [Normal S1 and S2, no S3 gallop, no murmur.] Abdomen: [Soft, nontender, no megaly, no rebound, no guarding, normal bowel sounds.] Extremities: [No clubbing, no edema, no cyanosis.] Neurological Exam: [No focal neurologic deficit.] Alert and oriented 3. Skin: No rashes. Psychiatric: Normal mood, affect and normal mental status examination. - Labs CBC & Chem 7: 10/15/19 12:46 10/15/19 12:46 Labs: Microbiology - Last 24 Hours (Table) 10/15/19 17:13 Blood Culture - Preliminary Blood No Growth after 24 hours Assessment and Plan Assessment: Impression: Acute influenza a infection Acute community-acquired pneumonia Acute exacerbation of COPD Tobacco dependence syndrome Right flank pain, with negative renal ultrasound. Recommendation: Considering the dramatic clinical improvement overnight, suggest discharging the patient home Continue oral Tamiflu Antibiotics in the form of Zithromax, for 5 more days. Medrol Dosepak Advised to stop smoking See me for follow-up on outpatient basis. Cleared for discharge today. Time with Patient: Less than 30
[2019-10-17 13:54] VITALS: PULSE 74
--- NOTE | 2019-10-20 23:07 | P.DS ---
Providers Date of admission: 10/15/19 16:40 Expected date of discharge: 10/17/19 Attending physician: Edgard Rodas Consults: 10/15/19 16:41 Consult Physician Stat Consulting Provider: Wen Preciado Reason/Comments: Influenza, pneumonia Do you want consulting provider notified?: Yes Primary care physician: Dom Bragg [facility] Course: Chief Complaint: Short of breath History of presenting complaint: This is a 39-year-old patient of Dr. BRAGG. Long-standing smoker. For 3 days patient started of with having fever chills achiness all over. Shortness of breath and wheezing cough. Presented for the same. Not getting better. In the ER patient tested positive for influenza type A. Started on Tamiflu admitted for the same. Also started on bronchodilators. Having muscle aches Admitted with diagnosis of-acute influenza A pneumonitis, possibly secondary bacterial pneumonia, sepsis, COPD exacerbation. Treated with steroids, bronchod ilators, Tamiflu, IV ceftriaxone. Counseled Also about smoking. Today-feeling much better. Symptoms are improved. Tolerating a diet well. Consultation: Dr. Preciado from pulmonary Physical examination: VITAL SIGNS: 98.5-69-18-120/71-95% on room air GENERAL: Sitting up, breathing much better EYES: Pupils equal. Conjunctiva normal. HEENT: External appearance of nose and ears normal, oral cavity grossly normal. NECK: JVD not raised; masses not palpable. HEART: First and second heart sounds are normal; no edema. LUNGS: Respiratory rate normal improved air entry. ABDOMEN: Soft, nontender, liver spleen not palpable, no masses palpable. PSYCH: Alert and oriented x3; mood and affect anxiousl. INVESTIGATIONS, reviewed in the clinical context: White count 10.6 hemoglobin 16 potassium 3.815 creatinine 0.49 Influenza type A RNA positive Chest x-ray film-personally reviewed by me shows questionable infiltrate. Assessment: -Acute influenza A pneumonitis, POA -Possible secondary bacterial pneumonia, POA -Sepsis due to above pneumonia, POA -Acute COPD exacerbation in a current smoker, POA -Chronic nicotine dependence patient's cigarette smoker -Chronic alcohol use -Recreational marijuana use Disposition: Home Plan - Discharge Summary Discharge Rx Participant: No New Discharge Prescriptions: New Ipratropium [place] [Atrovent Hfa] 2 puff INHALATION QID #1 inhaler Nicotine 21Mg/24Hr Patch [Habitrol] 1 patch TRANSDERM DAILY #14 patch predniSONE 10 mg PO DAILY #30 tab Oseltamivir [Tamiflu] 75 mg PO Q12HR #10 cap Albuterol Inhaler [Ventolin Hfa Inhaler] 1 - 2 puff INHALATION Q6HR PRN #1 inhaler PRN Reason: Wheezing Azithromycin [Zithromax] 500 mg PO DAILY #3 tab Continue guaiFENesin [Mucinex] 600 mg PO Q12H PRN PRN Reason: Congestion Ibuprofen [Motrin Ib] 400 mg PO Q6H PRN PRN Reason: Fever And/ Or Pain Lisinopril [Zestril] 5 mg PO DAILY No Action Red Yeast Rice 600 mg PO DAILY Cinnamon Bark [Cinnamon] 500 mg PO DAILY Discharge Medication List Cinnamon Bark [Cinnamon] 500 mg PO DAILY 10/15/19 [History] Ibuprofen [Motrin Ib] 400 mg PO Q6H PRN 10/15/19 [History] Lisinopril [Zestril] 5 mg PO DAILY 10/15/19 [History] Red Yeast Rice 600 mg PO DAILY 10/15/19 [History] guaiFENesin [Mucinex] 600 mg PO Q12H PRN 10/15/19 [History] Albuterol Inhaler [Ventolin Hfa Inhaler] 1 - 2 puff INHALATION Q6HR PRN #1 inhaler 10/17/19 [Rx] Azithromycin [Zithromax] 500 mg PO DAILY #3 tab 10/17/19 [Rx] Ipratropium [place] [Atrovent Hfa] 2 puff INHALATION QID #1 inhaler 10/17/19 [Rx] Nicotine 21Mg/24Hr Patch [Habitrol] 1 patch TRANSDERM DAILY #14 patch 10/17/19 [Rx] Oseltamivir [Tamiflu] 75 mg PO Q12HR #10 cap 10/17/19 [Rx] predniSONE 10 mg PO DAILY #30 tab 10/17/19 [Rx] Follow up Appointment(s)/Referral(s): Dom Bragg MD [Primary Care Provider] - 10/24/19 9:20 am Patient Instructions/Handouts: Albuterol (By breathing), Ipratropium (By breathing), Prednisone (By mouth), Azithromycin (By mouth), Nicotine (Absorbed through the skin), Oseltamivir (By mouth), How to Stop Smoking (DC), Influenza (DC), Pneumonia (DC) Discharge Disposition: HOME SELF-CARE
== END 2019-10-17 14:30 | disposition home or self-care (01) ==
LOC: EC 12:13 → INTOOBSV 16:40 → OBSVTOIN 16:40 → UNDOADMOB 16:40 → 5NMEDONC 16:40 → UNDODISIN 10-17 14:30
PROVIDERS: ADMIT Hospitalist; ATTEND Hospitalist
DX: A41.89 Other specified sepsis (principal); J10.01 Influenza due to other identified influenza virus with the same other identified influenza virus pneumonia; J10.08 Influenza due to other identified influenza virus with other specified pneumonia; J44.0 Chronic obstructive pulmonary disease with (acute) lower respiratory infection; J44.1 Chronic obstructive pulmonary disease with (acute) exacerbation; F17.210 Nicotine dependence, cigarettes, uncomplicated; G89.29 Other chronic pain; M54.5 Low back pain; Z79.899 Other long term (current) drug therapy; Z87.442 Personal history of urinary calculi; Z90.49 Acquired absence of other specified parts of digestive tract; F12.90 Cannabis use, unspecified, uncomplicated
CPT/HCPCS: 96376 ×2; 96361 ×3; 96366 ×2; 96372; 96365; 96375; 99285; 36415; 94640 ×6; 80053; 85025; 81001; 81025; 87040; 87502; 71046; 76770; G0378 ×3; J2920 ×2; J2930; J1650; J0696 ×3; J1885